=== PATIENT | male | born 1990 | race Caucasian/White ===

== ENCOUNTER 2022-07-27 12:38 | Inpatient (IN) | payer BC, OTHER ==
[~2022-07-27] VITALS: Ht 177.8 cm; Wt 80.4 kg
--- NOTE | 2022-07-27 12:51 | NUR ---
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
--- NOTE | 2022-07-27 12:51 | NUR ---
Keturah coburn in EDM - 07/27/22 at 1306 by DEEPAK To ER bed 1, BIBA RA88 "Was at work in [employer] had tonic/clonic seizure- fall +facial trauma/laceration- dislocation/Left shoulder pain, aaox3, don't remember what happened, connected to monitor, awaiting md orders
[2022-07-27] MEDS ORDERED: FENTANYL PF 100MCG/2ML AMPUL ONE (12:56)
[2022-07-27] MEDS ORDERED: IV NS 0.9% 1,000 ML BAG IV ONE (13:00)
[2022-07-27] MEDS ORDERED: FENTANYL PF 100MCG/2ML AMPUL IV ONE (13:00)
--- NOTE | 2022-07-27 13:03 | NUR ---
UNABLE TO PROVIDE URINE AT THIS TIME
--- NOTE | 2022-07-27 13:14 | NUR ---
TAKEN TO CT VIA NASIMA
[2022-07-27 13:17] LABS: BASOPHILS % (AUTO) 0.4 % (0.0-2.0); EOSINOPHILS % (AUTO) 1.4 % (0.0-6.0); HEMATOCRIT 50 % (39-51); HEMOGLOBIN 16.6 g/dL (13.5-17.5); MEAN CORPUSCULAR HGB CONC 33 g/dl (31.0-36.0); MEAN CORPUSCULAR VOLUME 94 fL (80-96); MONOCYTES # (AUTO) 0.5 K/uL (0.1-1.30); MONOCYTES % (AUTO) 6.3 % (2.0-12.0); NEUTROPHILS # (AUTO) 5.9 K/uL (1.8-8.9); NEUTROPHILS % (AUTO) 68.9 % (43.0-81.0); PLATELET COUNT (AUTO) 310 K/uL (150-450); RED BLOOD CELL COUNT(AUTO) 5.31 MIL/uL (4.5-6.0); WHITE BLOOD COUNT (AUTO) 8.6 K/uL (4.3-11.0)
[2022-07-27 13:25] LABS: CALCIUM, SERUM 9.7 mg/dL (8.5-10.1); CARBON DIOXIDE 19 mmol/L (21-32); CHLORIDE 100 mmol/L (98-107); CREATININE 1.2 mg/dL (0.6-1.3); GLUCOSE 130 mg/dL (74-106); POTASSIUM 3.8 mmol/L (3.5-5.1); SODIUM SERUM 140 mmol/L (136-145); UREA NITROGEN, BLOOD 10 mg/dL (7-18)
--- NOTE | 2022-07-27 13:30 | NUR ---
[id number]
[2022-07-27 13:31] LABS: ALANINE AMINOTRANSFERASE 61 U/L (12-78); ALBUMIN 4.7 g/dL (3.4-5.0); ALCOHOL, BLOOD < 3 mg/dL (0-0); ALKALINE PHOSPHATASE 68 U/L (46-116); ASPARTATE AMINOTRANSFERASE 30 U/L (15-37); BILIRUBIN,DIRECT 0.1 mg/dL (0.0-0.2); BILIRUBIN,TOTAL 0.4 mg/dL (0.2-1.0); TOTAL PROTEIN, SERUM 8.7 g/dL (6.4-8.2)
[2022-07-27] MEDS ORDERED: PROPOFOL 20 ML IV ONE (13:40)
--- NOTE | 2022-07-27 13:50 | NUR ---
MODERATE SEDATION WITH DR ANDERSON AND RT: 1352: GIVEN PROPOFOL 40MG 1353: GIVEN PROPOFOL 20MG 1354: GIVEN PROPOFOL 20MG 1355: GIVEN PROPOFOL 20MG 1356: GIVEN PROPOFOL 40MG 1357: GIVEN PROPOFOL 20MG
[2022-07-27] MEDS ORDERED: PROPOFOL 200 MG/20 ML VIAL IV ONE (14:00)
[2022-07-27] MEDS ORDERED: ARIP10TA9 PO (14:15)
[2022-07-27] MEDS ORDERED: VENLAFAXINE (14:15)
--- NOTE | 2022-07-27 14:25 | NUR ---
MOVE SHEET SUBMITTED.
--- NOTE | 2022-07-27 14:26 | NUR ---
PATIENT AWAKE, AAOX4, BREATHING EVEN AND NON LABORED
[2022-07-27] MEDS ORDERED: LEVETIRACETAM (500MG) 1,000 MG in IV NS 0.9% 100 ML IV ONE (14:30)
--- NOTE | 2022-07-27 14:31 | NUR ---
covid swab done sent to lab
--- NOTE | 2022-07-27 14:50 | NUR ---
DR. LÓPEZ SPEAKING WITH DR. ANDERSON.
--- NOTE | 2022-07-27 15:06 | NUR ---
HOSPITALIST SPEAKING WITH DR. ANDERSON
--- NOTE | 2022-07-27 15:49 | NUR ---
AMBULATED TO THE RESTROOM WITH STEADY GAIT
[2022-07-27] MEDS ORDERED: IV 1/2NS 1000 ML 1,000 ML IV PRN (16:30)
[2022-07-27] MEDS ORDERED: ACETAMINOPHEN 325 MG TABLET PO PRN (16:30)
[2022-07-27] MEDS ORDERED: Z GUARD REMEDY 4 OZ OINT TP PRN (16:30)
[2022-07-27] MEDS ORDERED: ONDANSETRON HCL/PF 4 MG/2 ML VIAL IVP PRN (16:30)
[2022-07-27] MEDS ORDERED: ARIPIPRAZOLE 5 MG TABLET PO PRN (17:00)
--- NOTE | 2022-07-27 18:49 | NUR ---
[employer] FA[employer] BROTHER [phone]
--- NOTE | 2022-07-27 20:51 | NUR ---
FOLLOWED UP WITH RADIOLOGY REGARDING READ FOR HEAD CT
--- NOTE | 2022-07-27 21:51 | NUR ---
ROOM 251
--- NOTE | 2022-07-27 22:54 | NUR ---
REPORT GIVEN TO SHANNAN MECHANICAL REPAIR WORKER FOR [employer]
[2022-07-27] MEDS ORDERED: HYDROCODONE/APAP 5/325MG TABLET ONE (22:55)
[2022-07-27] MEDS: HYDROCODONE/APAP 5/325MG TABLET PO PRN (22:57)
--- NOTE | 2022-07-27 23:12 | NUR ---
ELAINE FILTER ASSEMBLER AT PT'S BEDSIDE DISCUSS CARE WITH FAMILY
--- NOTE | 2022-07-27 23:26 | NUR ---
PT TRANSFERRED TO ICU 251 VIA ACLS PROTOCOL. VSS. ALL BELONGINGS WITH PT.
[2022-07-27 23:28] VITALS: BP 126/69
[2022-07-27 23:30] VITALS: BP 120/67
--- NOTE | 2022-07-27 23:30 | NUR ---
Received patient from ED via gurney ambulated to bed and made comfortable.Awake alert and orientedx4.VSS.SR.Normotensive.With left arm on sling.Skin warm to touch with brisk cap refill. Dx:SEIZURE and SDH.No neuro deficit noted.Seizure precaution implemented with rails padded and call light at bedside.Encouraged patient to call for assistance.Oriented to room and care explained.Verbalized understanding.
[2022-07-28] VITALS (12 sets, daily range): BP systolic 105–136; BP diastolic 65–85
[2022-07-28] MEDS: MORPHINE SULFATE INJ 2 MG/ML DISP.SYRIN IV PRN ×3 (01:20→11:10)
[2022-07-28] MEDS ORDERED: LEVETIRACETAM (500MG) 500 MG/5 ML VIAL IV ONE (01:49)
[2022-07-28] MEDS ORDERED: LEVETIRACETAM (500MG) 500 MG in IV NS 0.9% 100 ML IV SCH (02:00)
[2022-07-28 05:04] LABS: BASOPHILS % (AUTO) 0.5 % (0.0-2.0); EOSINOPHILS % (AUTO) 1.5 % (0.0-6.0); HEMATOCRIT 44 % (39-51); HEMOGLOBIN 14.6 g/dL (13.5-17.5); LYMPHOCYTES # (AUTO) 1.5 K/uL (0.8-4.8); LYMPHOCYTES % (AUTO) 15.7 % (20.0-44.0); MEAN CORPUSCULAR HGB CONC 34 g/dl (31.0-36.0); MEAN CORPUSCULAR VOLUME 93 fL (80-96); MONOCYTES # (AUTO) 0.7 K/uL (0.1-1.30); MONOCYTES % (AUTO) 7.8 % (2.0-12.0); NEUTROPHILS % (AUTO) 74.5 % (43.0-81.0); PLATELET COUNT (AUTO) 248 K/uL (150-450); RED BLOOD CELL COUNT(AUTO) 4.71 MIL/uL (4.5-6.0); WHITE BLOOD COUNT (AUTO) 9.4 K/uL (4.3-11.0)
[2022-07-28 05:40] LABS: ALBUMIN 3.7 g/dL (3.4-5.0); BILIRUBIN,TOTAL 0.8 mg/dL (0.2-1.0); CALCIUM, SERUM 8.5 mg/dL (8.5-10.1); MAGNESIUM 2.2 mg/dL (1.8-2.4); POTASSIUM 3.7 mmol/L (3.5-5.1); TOTAL PROTEIN, SERUM 6.9 g/dL (6.4-8.2)
--- NOTE | 2022-07-28 06:06 | NUR ---
Patient complaints of pain to left shoulder.Medicated with prn morphine x2 doses.Verbalized pain medication effective.IVF infusing well.Voiding per urinal.No seizure activity noted during the shift.Safety precaution maintained.
--- NOTE | 2022-07-28 07:30 | NUR ---
OPENING NOTE: REPORT RECEIVED FROM ANGELINA MCDONALD. ORDERS AND LABS REVIEWED DURING REPORT. PT ALERT OX3, ADMITTED OVERNIGHT. PER REPORT PT HAD DISLOCATED LEFT SHOULDER, REDUCED IN ER. LEFT ARM IS IN SLING. PT CHECKED ON HOURLY AND PRN BY NURSING STAFF.
[2022-07-28] MEDS: HYDROCODONE/APAP 5/325MG TABLET PO PRN (09:29)
--- NOTE | 2022-07-28 10:49 | NUR ---
PT TRANSERRED TO ROOM 313-2 VIA WHEELCHAIR ACCOMPANIED BY RN WITH ALL BELONGINGS. BELONINGS LIST SIGNED BY RN. RN NOTIFIED SISTER OF TRANSFER. REPORT GIVEN TO BEDSIDE RN.
--- NOTE | 2022-07-28 10:57 | NUR ---
PATIENT TRANSFERRED FORM ICU WITH WHEEL CHAIR, REPORTED BY JANICE/RN, ADMIT DX IS SEIZURE. ALL VITLA SIGNS ARE STABLE AND DOCUMENTED IN INTERVENTION. PATIENT C/O PAIN ON LEFT SHOULDER AND ASKED MORPHINE AND GIVEN. CALL LIGHT WITHIN REACH, WILL CONTINUE TO MONITOR.
--- NOTE | 2022-07-28 14:00 | NUR ---
PATIENT LEFT FACILITY ACCOMPANIED BY HIS BROTHER WITH PRIVATE CAR. GIVEN DISCHARGE INSTRUCTION AND REMOVED IV LINE BEFORE DISCHARGE. PATIENT IN STABLE CONDITION, REFUSED EEG.
--- NOTE | 2022-07-30 10:27 | NUR ---
SW received consult over the weekend fpr detox program referral, however, pt. has departed.
== END 2022-07-28 14:00 | disposition home or self-care (01) | DRG 100 ==
LOC: ER 12:40 → ICU 22:08 → MED 07-28 10:54
PROVIDERS: ADMIT Internal Medicine; ATTEND Internal Medicine
DX: G40.509 Epileptic seizures related to external causes, not intractable, without status epilepticus (principal); S06.5X9A Traumatic subdural hemorrhage with loss of consciousness of unspecified duration, initial encounter; F10.239 Alcohol dependence with withdrawal, unspecified; F13.239 Sedative, hypnotic or anxiolytic dependence with withdrawal, unspecified; Z79.899 Other long term (current) drug therapy; W18.30XA Fall on same level, unspecified, initial encounter; Y92.89 Other specified places as the place of occurrence of the external cause; S00.83XA Contusion of other part of head, initial encounter; F41.9 Anxiety disorder, unspecified; Y90.0 Blood alcohol level of less than 20 mg/100 ml; Z20.822 Contact with and (suspected) exposure to COVID-19; G47.00 Insomnia, unspecified; F43.9 Reaction to severe stress, unspecified; M24.412 Recurrent dislocation, left shoulder
CPT/HCPCS: 36415; 70450-TC; 71045-TC; 73030-TC; 80048-TC; 80053-TC; 80076-TC; 82962-TC; 83605-TC; 83735-TC; 84100-TC; 85025-TC; 87040-TC; 87081-TC; C9803; G0378; G0480; G0500; J1953; J2270; J2704; J3010; J3490; J7030